=== PATIENT | female | born 1945 | race Caucasian/White ===

== ENCOUNTER 2019-11-27 16:38 | Inpatient (IN) | payer OTHER ==
[~2019-11-27] VITALS: Ht 160 cm; Wt 64.0 kg
[2019-11-27] MEDS ORDERED: METO25TA6 PO (16:57)
[2019-11-27] MEDS ORDERED: CHOL10002 PO (16:57)
[2019-11-27] MEDS ORDERED: HYDR12.55 PO (16:57)
[2019-11-27 17:51] LABS: *CLARITY,URINE CLEAR (CLEAR); *COLOR,URINE YELLOW (YELLOW); *KETONES,URINE TRACE (NEGATIVE); LEUKOCYTE ESTERASE ,URINE NEGATIVE (NEGATIVE); NITRITE, URINE NEGATIVE (NEGATIVE); UGLUCOSE NEGATIVE (NEGATIVE)
[2019-11-27 17:55] LABS: *BILIRUBIN,URIN 1+ (NEGATIVE); *BLOOD, URINE TRACE (NEGATIVE)
--- NOTE | 2019-11-27 19:10 | NUR ---
Patient sleeping on gurny in room 4b with no distress noted.
[2019-11-27 20:00] VITALS: BP 146/97
[2019-11-27] MEDS ORDERED: METO-357 PO (20:08)
[2019-11-27 20:18] LABS: BACTERIA,URINE FEW /HPF (NONE SEEN); CALCIUM OXALATE CRYSTALS,UR MODERATE /HPF (NONE SEEN); MUCUS,URINE MANY /LPF (0-FEW); SQUAMOUS EPITHELIAL CELL,UR MODERATE /HPF (NONE SEEN); WBC,URINE NONE SEEN /HPF (0-3)
--- NOTE | 2019-11-27 20:30 | NUR ---
Transfered to MHU via wheelchair with no distress noted.
[2019-11-27] MEDS ORDERED: ACETAMINOPHEN 325 MG TABLET PO PRN (21:00)
[2019-11-27] MEDS ORDERED: MAG HYDROX/AL HYDROX/SIMETH 30 ML LIQUID UDC PO PRN (21:00)
[2019-11-27] MEDS ORDERED: MAGNESIUM HYDROXIDE 30 ML LIQUID UDC PO PRN (21:00)
[2019-11-27] MEDS ORDERED: TEMAZEPAM 7.5 MG CAPSULE PO PRN (21:00)
--- NOTE | 2019-11-27 22:00 | NUR ---
ADMISSION NOTE: AT APPROX 2030 ADMITTED 74 YEARS OLD FEMALE FROM [facility] ON A 5150 HOLD FOR GD AND DTS. HER HOLD WILL BE UP ON 11/29/19 AT 2100. 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 UPON ADMISSION, PATIENT NOTED A/O X 3 AMBULATORY, SELF CARE. PATIENT REFLECTS WHAT IS WRITTEN ON THE HOLD. MOOD IS LOW, AFFECT IS BLUNTED. PATIENT ST THAT SHE HEARS VOICES TELLING HER TO "GO OUTSIDE". PATIENT DENIES SI/HI. SHE IS ABLE TO CFS. FACE TO FACE ASSESSMENT WAS DONE, PT WAS ADVISED OF HER HOLD AND ADVISEMENT WAS GIVEN WELL HER PATIENTS' RIGHT BOOKLET. DR CHIANG WAS NOTIFIED OF THE HOLD. SON WAS NOTIFIED OF HER ADMISSION TO MHU. PATIENT WAS EDUCATED ON UNIT RULES. WILL CONTINUE TO MONITOR.
[2019-11-28 07:30] VITALS: BP 127/81
[2019-11-28] MEDS: CHOLECALCIFEROL 1,000 UNIT TABLET PO SCH (09:47)
[2019-11-28] MEDS: METOPROLOL SUCCINATE XL 50 MG TAB.SR.24H PO SCH (09:49)
[2019-11-28] MEDS: HYDROCHLOROTHIAZIDE 12.5 MG CAPSULE PO SCH (09:54)
--- NOTE | 2019-11-28 10:45 | NUR ---
Family Contact: SW called the pts son, Paul ([phone]), and left a voicemail message stating that the SW would like a call back to discuss the pts initial treatment and discharge plan.
--- NOTE | 2019-11-28 10:53 | NUR ---
Initial Discharge Plan: Pt currently resides at her home alone located at [address] [place] [address], [facility] [address], [place] [address]; ([phone]). Per pt, she would like to be discharged home. SW will work with the pt and the MD regarding appropriate discharge planning. SW will form a safe and proper discharge plan.
[2019-11-28] MEDS: OLANZAPINE 2.5 MG TABLET PO SCH ×2 (12:45→17:28)
--- NOTE | 2019-11-28 12:47 | NUR ---
Family Contact: Pts son, Paul ([phone]), called the SW and stated that the pt has so many friends that live around her and that her home is a safe environment for the pt. He states that he does not live too far away and therefore he often visits and so she has support in that sense. SW explained that the pt will be released once she is considered stable and that for the current time the pts medications are going to be adjusted. SW stated that she will inform the pts son when she will be discharged.
--- NOTE | 2019-11-28 13:59 | NUR ---
TEXTED DR. MURCIA FOR MRI APPROVAL
--- NOTE | 2019-11-28 14:17 | NUR ---
MRI ON HOLD FOR NOW, DR. MURCIA WILL LET US KNOW.
--- NOTE | 2019-11-28 15:13 | NUR ---
Group Note: Pt was encouraged to attend group therapy on 11/28/19 at 1:30pm discussing the topic of discharge planning. Pt appeared to be in a euthymic mood and presented with a calm affect. Pt is hard of hearing and therefore required the participants of the group to speak at a higher volume. Pt maintained appropriate distance from the others in the activities room due to COVID 19. Pt was present and attentive in the room. Pt stated that she wanted to go back to her home because that is where she feels the most comfortable. Pt stated that she was admitted to the hospital because she was hearing voices that were disruptive to her and were telling her to do things that she did not want to do. Pt stated that she believes these voices began because she was starting to feel lonely being isolated from her friends and family due to COVID 19. Pt exhibited fair insight when she stated that once she goes back to her home after being discharged from the hospital she will have to maintain her medications. Pt understands that the medications are going to assist her with her symptoms of psychosis.
[2019-11-28 15:41] VITALS: BP 133/90
[2019-11-28 21:18] VITALS: BP 112/86
--- NOTE | 2019-11-29 05:53 | NUR ---
GPS: PT RECEIVED IN HALLWAY AND RESPOND VERBALLY AND STATED SHE IS REALLY NOT SUPPOSE TO BE HERE. PT WANT TO GO HOME WITH FAMILY. DENIED SI, BUT DEPRESS WITH CURRENT SITUATION. NO OTHER BEHAVIORS DURING NIGHT AND SLEPT WELL.
--- NOTE | 2019-11-29 06:55 | NUR ---
MRI APPROVED LAST NIGHT BY DR. MURCIA
[2019-11-29 07:30] VITALS: BP 123/87
--- NOTE | 2019-11-29 08:16 | NUR ---
received patient AOx1-2, patient lying on bed, patient verbalizes that shes aware where she is, patient also verbalizes that voices telling her to kill herself last night, patient having active auditory hallucination, patient kept safe, no distress at this time, will continue monitor
[2019-11-29] MEDS: CHOLECALCIFEROL 1,000 UNIT TABLET PO SCH (08:25)
[2019-11-29] MEDS: HYDROCHLOROTHIAZIDE 12.5 MG CAPSULE PO SCH (08:25)
[2019-11-29] MEDS: OLANZAPINE 2.5 MG TABLET PO SCH ×2 (08:25→20:47)
[2019-11-29] MEDS: METOPROLOL SUCCINATE XL 50 MG TAB.SR.24H PO SCH (08:26)
--- NOTE | 2019-11-29 10:00 | NUR ---
faxed court notification regarding [facility]
--- NOTE | 2019-11-29 10:23 | NUR ---
received a call from [facility], with mr. Spangler, that the MRI was approved by Dr. Payne, call the light industrial supervisor and spoke about the procedure, arrange transportation and ask patient to fill up the MRI checklist, patuent aware of the procedure, will continue monitor
--- NOTE | 2019-11-29 13:30 | NUR ---
patient went to have MRI , picked up by [facility] , accompanied by AMMUNITION SPECIALIST ,
--- NOTE | 2019-11-29 15:33 | NUR ---
Patient returned to unit after MRI , patient shows no dis comfort, VS WNL Addendum: 11/29/19 at 1535 by CLINT STRATTON RN BP 130/80 P78 R 18 T 97.9 O2 at 100%
[2019-11-29 16:00] VITALS: BP 113/87
--- NOTE | 2019-11-29 18:27 | NUR ---
Patient stayed calm and cooperative, patient been having phone calls and was able to respond accordingly, MRI result in MD aware
[2019-11-29 20:00] VITALS: BP 110/88
[2019-11-29] MEDS: SIMVASTATIN 10 MG TABLET PO SCH (20:47)
[2019-11-30 07:30] VITALS: BP 125/86
[2019-11-30] MEDS: CHOLECALCIFEROL 1,000 UNIT TABLET PO SCH (08:45)
[2019-11-30] MEDS: HYDROCHLOROTHIAZIDE 12.5 MG CAPSULE PO SCH (08:46)
[2019-11-30] MEDS: METOPROLOL SUCCINATE XL 50 MG TAB.SR.24H PO SCH (08:46)
[2019-11-30] MEDS: OLANZAPINE 2.5 MG TABLET PO SCH ×2 (08:46→20:17)
[2019-11-30 16:44] VITALS: BP 137/86
[2019-11-30] MEDS: SIMVASTATIN 10 MG TABLET PO SCH (20:17)
[2019-11-30 20:39] VITALS: BP 142/91
--- NOTE | 2019-12-01 06:44 | NUR ---
DURING THE NIGHT.PT CAME OUT OF HER ROOM THEN ASKED STAFFS IF THEY HEARD THE RADIO VOICES ,AND SHE MENTIONED ABOUT HEARING VOICES THRU WIFI.FREQ REALITY REORIENTATION NEEDED.
[2019-12-01 07:30] VITALS: BP 147/92
[2019-12-01] MEDS: HYDROCHLOROTHIAZIDE 12.5 MG CAPSULE PO SCH (08:36)
[2019-12-01] MEDS: CHOLECALCIFEROL 1,000 UNIT TABLET PO SCH (08:36)
[2019-12-01] MEDS: OLANZAPINE 2.5 MG TABLET PO SCH ×2 (08:36→20:19)
[2019-12-01] MEDS: METOPROLOL SUCCINATE XL 50 MG TAB.SR.24H PO SCH (08:40)
--- NOTE | 2019-12-01 09:43 | NUR ---
UR Note: SW received a call from Leanne ([phone]), N Temperature Regulator, and conducted a clinical. Pt was authorized until Saturday 12/02.
[2019-12-01 16:00] VITALS: BP 146/91
[2019-12-01 20:00] VITALS: BP 131/88
[2019-12-01] MEDS: SIMVASTATIN 10 MG TABLET PO SCH (20:20)
[2019-12-01] MEDS: LORAZEPAM 0.5 MG TABLET PO PRN (20:53)
[2019-12-02 07:30] VITALS: BP_SYST 112; BP_SYST 131; BP_DIAS 80; BP_DIAS 82
[2019-12-02 07:53] LABS: BASOPHILS % (AUTO) 0.7 % (0.0-2.0); EOSINOPHILS # (AUTO) 0.1 K/uL (0.0-0.7); EOSINOPHILS % (AUTO) 2.1 % (0.0-7.0); HEMOGLOBIN 12.5 g/dL (10.9-14.3); LYMPHOCYTES # (AUTO) 1.2 K/uL (20.0-40.0); LYMPHOCYTES % (AUTO) 20.9 % (20.5-51.5); MEAN CORPUSCULAR HEMOGLOBIN 32.1 uug (24.7-32.8); MEAN CORPUSCULAR HGB CONC 34 g/dL (32.3-35.6); MEAN CORPUSCULAR VOLUME 94.8 fL (75.5-95.3); MONOCYTES # (AUTO) 0.6 K/uL (2.0-10.0); NEUTROPHILS # (AUTO) 3.7 K/uL (1.8-8.9); NEUTROPHILS % (AUTO) 65.3 % (38.5-71.5); PLATELET COUNT (AUTO) 205 K/uL (179-408); WHITE BLOOD COUNT (AUTO) 5.7 K/uL (3.8-11.8)
[2019-12-02 07:55] LABS: BILIRUBIN,TOTAL 0.6 mg/dL (0.2-1.0); MAGNESIUM 2.1 mg/dL (1.8-2.4); PHOSPHOROUS 2.9 mg/dL (2.5-4.9); POTASSIUM 4.1 mmol/L (3.5-5.1); TOTAL PROTEIN, SERUM 6.9 g/dL (6.4-8.2)
[2019-12-02 08:06] LABS: THYROID STIMULATING HORMONE 1.182 mIU/mL (0.358-3.740)
[2019-12-02] MEDS: OLANZAPINE 2.5 MG TABLET PO SCH ×2 (08:18→21:25)
[2019-12-02] MEDS: CHOLECALCIFEROL 1,000 UNIT TABLET PO SCH (08:18)
[2019-12-02] MEDS: HYDROCHLOROTHIAZIDE 12.5 MG CAPSULE PO SCH (08:18)
[2019-12-02] MEDS: METOPROLOL SUCCINATE XL 50 MG TAB.SR.24H PO SCH (08:19)
--- NOTE | 2019-12-02 10:09 | NUR ---
Probable Cause (PC) Hearing: Pts hold was upheld for grave disability.
[2019-12-02 15:19] VITALS: BP 112/80
--- NOTE | 2019-12-02 15:33 | NUR ---
UR Note: KAREL called Leanne ([phone]), [employer] Automotive Assembler, and left a voicemail inquiring about a partial program for the pt.
--- NOTE | 2019-12-02 15:33 | NUR ---
Partial Referral: KAREL faxed a referral to [facility] with attention to Zora to the fax number: [phone].
--- NOTE | 2019-12-02 15:38 | NUR ---
Family Contact: KAREL called the pts son, Paul ([phone]), and informed him about the pts progress and the intent to admit the pt to a partial program once she is discharged. Pts son stated that he spoke to the pt the following day and feels that she has not shown improvement and stated that he feels concerned. He stated that when he talked to her on the phone she was petrified and hysterical about her voices in her head and stated that it took him 30 minutes to calm her down. SW stated that she will ask the insurance company for more time during the review and go from there in terms of discharge planning.
[2019-12-02 20:00] VITALS: BP 130/80
--- NOTE | 2019-12-02 20:20 | NUR ---
Patient received into care laying in bed, talking on telephone with brother. Patient is alert/oriented x3 and has no complaints of pain or discomfort at this time. All safety, fall, and GPS/MHU precautions are in place. Will continue to monitor and assess.
[2019-12-02] MEDS: SIMVASTATIN 10 MG TABLET PO SCH (21:25)
--- NOTE | 2019-12-03 06:45 | NUR ---
Patient slept 6 hours and had no complaints of pain or discomfort this shift. Pt was compliant with all medical care, medication regime, and diet. Pt is now awake and alert and watching television in the activities room. All safety, fall, GPS/MHU, and fall precaution measures remain in place.
[2019-12-03 07:30] VITALS: BP 142/89
[2019-12-03] MEDS: CHOLECALCIFEROL 1,000 UNIT TABLET PO SCH (09:17)
[2019-12-03] MEDS: OLANZAPINE 2.5 MG TABLET PO SCH ×2 (09:17→21:02)
[2019-12-03] MEDS: METOPROLOL SUCCINATE XL 50 MG TAB.SR.24H PO SCH (09:18)
[2019-12-03] MEDS: HYDROCHLOROTHIAZIDE 12.5 MG CAPSULE PO SCH (09:20)
--- NOTE | 2019-12-03 10:10 | NUR ---
UR Note: KAREL received a call from Leanne ([phone]), [employer] Internal Review And Audit Compliance, and conducted a clinical. She stated that she understands the SW is attempting to refer the pt to a SNF and so she will speak to the MD on the case about authorizing throughout the weekend. She will call the SW back with the information.
--- NOTE | 2019-12-03 10:33 | NUR ---
Partial Program Referral: SW called [facility] Program called Alek Bell and spoke Maranda ([phone]) and she stated that their program is out of network.
--- NOTE | 2019-12-03 12:09 | NUR ---
SNF Referral: SW faxed a referral to the following two facilities: [facility] with attn to Luis to the fax number: [phone] [facility] with attn to Stacey to the fax number: [phone]
--- NOTE | 2019-12-03 12:10 | NUR ---
SNF Contact: Stacey , admissions assistant from [facility], contacted the SW and stated that the pt was denied due to her behaviors.
--- NOTE | 2019-12-03 12:21 | NUR ---
SNF Contact: KAREL received a call from Osman ([phone]) from [facility] requesting a COVID test be faxed to them. KAREL faxed a COVID test to the fax number: [phone].
[2019-12-03] MEDS: MEMANTINE HCL 5 MG TABLET PO SCH ×2 (12:33→21:01)
--- NOTE | 2019-12-03 13:25 | NUR ---
UR Note: SW received a call from Leanne ([phone]), N Director Mobile, who stated that the pt is authorized until 12/05/19 because the MD on the case would like more information on the pts diagnosis and whether or not the pts family knew about her medications.
--- NOTE | 2019-12-03 14:12 | NUR ---
SNF Contact: SW received a call from Osman ([phone]) from [facility] stating that the pt was accepted to their facility.
[2019-12-03 16:00] VITALS: BP 122/76
[2019-12-03 20:28] VITALS: BP 128/80
--- NOTE | 2019-12-03 20:44 | NUR ---
Received patient while sitting in her bed. AAO x3. Compliant with medication. No SI. No behavioral issues. Calm and cooperative. Continue to monitor.
[2019-12-03] MEDS: SIMVASTATIN 10 MG TABLET PO SCH (21:02)
[2019-12-04] MEDS: LORAZEPAM 0.5 MG TABLET PO PRN (00:43)
--- NOTE | 2019-12-04 00:55 | NUR ---
Patient was agitated and crying, stated, "Don't let my baby dies". Reinforce her to reality. Ativan 0.5 mg tab administered and effective. Continue to monitor.
[2019-12-04 07:30] VITALS: BP 128/75
[2019-12-04] MEDS: MEMANTINE HCL 5 MG TABLET PO SCH ×2 (08:50→20:19)
[2019-12-04] MEDS: METOPROLOL SUCCINATE XL 50 MG TAB.SR.24H PO SCH (08:51)
[2019-12-04] MEDS: CHOLECALCIFEROL 1,000 UNIT TABLET PO SCH (08:51)
[2019-12-04] MEDS: HYDROCHLOROTHIAZIDE 12.5 MG CAPSULE PO SCH (08:51)
[2019-12-04] MEDS: OLANZAPINE 2.5 MG TABLET PO SCH ×2 (08:52→20:19)
[2019-12-04] MEDS: risperiDONE 0.5 MG TABLET PO SCH ×2 (15:22→17:25)
[2019-12-04 15:37] VITALS: BP 128/83
--- NOTE | 2019-12-04 16:15 | NUR ---
Family Contact: SW called the pts son, Paul ([phone]), and left a voicemail informing him that the pts medications are going to be changing today due to the pt showing increased confusion and the SW expressed that she will ask the insurance company for more time. KAREL then stated that a SNF has already accepted the pt and now the insurance company needs to authorize it.
--- NOTE | 2019-12-04 16:46 | NUR ---
Received patient this am Awake, sitting on the bed, but confused and with hallucinations. Assist given to bathroom and reorientation to environment provided. Patient was compliant with medication but seems to still be hearing voices and paranoid. Multiple phone calls for the patient today and patient did participate in some recreational therapy. Continuing to provide a reality based conversations, redirect and reorient when confused. Monitoring for safety. No acute behavioral issues noted at this time.
--- NOTE | 2019-12-04 20:36 | NUR ---
Received patient in her bed. AAO x3. Compliant with medication. No SI. No behavioral issues. Calm and cooperative. Continue to monitor.
[2019-12-04] MEDS: SIMVASTATIN 10 MG TABLET PO SCH (20:38)
[2019-12-04 20:57] VITALS: BP 123/89
[2019-12-05 07:30] VITALS: BP 137/92
[2019-12-05] MEDS: OLANZAPINE 2.5 MG TABLET PO SCH (08:47)
[2019-12-05] MEDS: CHOLECALCIFEROL 1,000 UNIT TABLET PO SCH (08:47)
[2019-12-05] MEDS: HYDROCHLOROTHIAZIDE 12.5 MG CAPSULE PO SCH (08:48)
[2019-12-05] MEDS: METOPROLOL SUCCINATE XL 50 MG TAB.SR.24H PO SCH (08:48)
[2019-12-05] MEDS: risperiDONE 0.5 MG TABLET PO SCH ×3 (08:48→16:28)
--- NOTE | 2019-12-05 08:54 | NUR ---
Received patient awake in bed. Patient is calm and quiet. Patient consumed breakfast fairly. Patient suspicious noted, Patient refuse to take one medication, memantine for behavioral problem. Patient verbalize" Im taking more pills everyday, " I need to talk to the doctor. Patient was reorient and explain each medication she is taking, still refusing. will come back and continue monitor
[2019-12-05] MEDS: MEMANTINE HCL 5 MG TABLET PO SCH ×3 (09:00→20:44)
--- NOTE | 2019-12-05 09:26 | NUR ---
Patient refuse again for memantine despite of education and encouragement. will continue monitor
--- NOTE | 2019-12-05 09:27 | NUR ---
UR Note: SW received a call from Kyara ([phone]), [employer] Shuttlecock Assembler, and conducted a live review on the case. KAREL informed her about the medication changes and the recent progress with having the pt accepted to a SNF. Pts vocational case manager authorized the pt for inpatient stay from 12/05-12/07 with a review on 12/08/19.
--- NOTE | 2019-12-05 09:30 | NUR ---
Family Contact: KAREL called the pts son, Paul ([phone]), and informed him that the pt was accepted to a SNF and that the SW is working with the insurance company to receive authorization for the SNF. KAREL then went into the pts medication changes and then went over her behaviors as well. KAREL stated that she will keep him updated regarding the pts case.
--- NOTE | 2019-12-05 11:34 | NUR ---
Family Contact: KAREL called the pts son, Paul ([phone]), and addressed his questions regarding the insurance company authorization at depth. KAREL stated that she will keep him updated in terms of whether or not the facility will be authorized.
--- NOTE | 2019-12-05 13:28 | NUR ---
Patient seen and examined by MD Rosario. After examination from MD, Patient agree to take all her medication. Patient continue on fall risk precaution. will continue monitor
--- NOTE | 2019-12-05 15:40 | NUR ---
UR Note: SW called [facility] Authroization line ([phone]) and spoke to Ashley (Reference #[id number]) and informed her that the pt needs SNF authorization. apartment leasing manager stated that the pt would need to be authorized through [facility] ([phone]) as they are responsible for the retirement aspect of the medical center.
--- NOTE | 2019-12-05 15:51 | NUR ---
UR Note: SW called [facility] ([phone]) and left a voicemail stating that the SW would like a call back regarding SNF authorization for a pt.
[2019-12-05 15:58] VITALS: BP 127/82
--- NOTE | 2019-12-05 17:30 | NUR ---
Patient went to the nurse station, verbalize to the charge nurse" why you telling the other patient that Im incompetent" . Patient was redirected right away with good effect. will continue monitor
[2019-12-05 20:00] VITALS: BP 130/78
[2019-12-05] MEDS: SIMVASTATIN 10 MG TABLET PO SCH (20:44)
[2019-12-05] MEDS: risperiDONE 1 MG TABLET PO SCH (20:44)
[2019-12-06 07:30] VITALS: BP 121/77
--- NOTE | 2019-12-06 07:34 | NUR ---
PATIENT SLEPT MOST OF THE NIGHT NO BEHAVIORAL PROBLEM NOTED, COOPERATIVE WITH MEDS, CONT TO MONITOR.
[2019-12-06] MEDS: OLANZAPINE 2.5 MG TABLET PO SCH (08:06)
[2019-12-06] MEDS: risperiDONE 0.5 MG TABLET PO SCH ×3 (08:06→16:06)
[2019-12-06] MEDS: CHOLECALCIFEROL 1,000 UNIT TABLET PO SCH (08:06)
[2019-12-06] MEDS: METOPROLOL SUCCINATE XL 50 MG TAB.SR.24H PO SCH (08:07)
[2019-12-06] MEDS: MEMANTINE HCL 5 MG TABLET PO SCH ×2 (08:07→20:26)
[2019-12-06] MEDS: HYDROCHLOROTHIAZIDE 12.5 MG CAPSULE PO SCH (08:08)
--- NOTE | 2019-12-06 09:00 | NUR ---
GPS: RECEIVED PATIENT ASLEEP IN HER BED, WOKE UP AND TOOK HER MEDICATION NO DISTRESS AT THIS TIME, PATIENT WAS ABLE TO DO ADLS, MONITORING FOR FALL PRECAUTION, PATIENT DENIES ANY HALLUCINATION
[2019-12-06 16:00] VITALS: BP 109/79
--- NOTE | 2019-12-06 18:21 | NUR ---
seen walking in the hallway with steady gait, monitored for fallrisk, no distress, denies any auditory and command hallucination
[2019-12-06] MEDS: risperiDONE 1 MG TABLET PO SCH (20:26)
[2019-12-06] MEDS: SIMVASTATIN 10 MG TABLET PO SCH (21:11)
[2019-12-06 21:14] VITALS: BP 122/83
--- NOTE | 2019-12-07 02:57 | NUR ---
RECEIVED PATIENT AWAKE IN ACTIVITY ROOM INTERACTING WITH PEERS. SHE IS MEDICATION COMPLIANT.DENIES SI/HI. WILL CONTINUE WITH MONITORING.
--- NOTE | 2019-12-07 06:34 | NUR ---
SLEPT FOR ABOUT 6HOURS. SHE IS UP AND HAS TAKEN A SHOWER.
[2019-12-07 07:30] VITALS: BP 132/89
[2019-12-07] MEDS: OLANZAPINE 2.5 MG TABLET PO SCH (08:09)
[2019-12-07] MEDS: risperiDONE 0.5 MG TABLET PO SCH ×3 (08:10→16:04)
[2019-12-07] MEDS: MEMANTINE HCL 5 MG TABLET PO SCH ×2 (08:10→20:53)
[2019-12-07] MEDS: METOPROLOL SUCCINATE XL 50 MG TAB.SR.24H PO SCH (08:10)
[2019-12-07] MEDS: HYDROCHLOROTHIAZIDE 12.5 MG CAPSULE PO SCH (08:10)
[2019-12-07] MEDS: CHOLECALCIFEROL 1,000 UNIT TABLET PO SCH (08:10)
--- NOTE | 2019-12-07 08:20 | NUR ---
GPS: received patient AOX3, patient in good mood, seen walking steadily in the hallway, denies pain ,ask the patient regarding the Voices she hearing patient verbalizes that when she prays the Voices go away and she even told her roommate about it, patient was aware about the auditory hallucination and patient compliant with her medication, denies pain and denies SI and HI at this time
[2019-12-07 15:27] VITALS: BP 138/80
--- NOTE | 2019-12-07 18:27 | NUR ---
patient calm cooperative , patient verbalizes that her voices that she hear is much less, no distress at this time
[2019-12-07 20:20] VITALS: BP 127/75
[2019-12-07] MEDS: risperiDONE 1 MG TABLET PO SCH (20:52)
[2019-12-07] MEDS: SIMVASTATIN 10 MG TABLET PO SCH (20:53)
--- NOTE | 2019-12-08 00:20 | NUR ---
RECEIVED PATIENT IN ACTIVITY ROOM WITH PEERS. DENIES AH/SI. COMPLIANT WITH MEDICATION AND CARE. WILL CONTINUE TO MONITOR.
--- NOTE | 2019-12-08 06:32 | NUR ---
SLEPT WELL FOR APPROX.9:00 HOURS.
[2019-12-08 07:30] VITALS: BP 134/87
[2019-12-08] MEDS: CHOLECALCIFEROL 1,000 UNIT TABLET PO SCH (08:44)
[2019-12-08] MEDS: MEMANTINE HCL 5 MG TABLET PO SCH ×2 (08:44→20:15)
[2019-12-08] MEDS: HYDROCHLOROTHIAZIDE 12.5 MG CAPSULE PO SCH (08:44)
[2019-12-08] MEDS: risperiDONE 0.5 MG TABLET PO SCH ×3 (08:44→16:07)
[2019-12-08] MEDS: OLANZAPINE 2.5 MG TABLET PO SCH (08:44)
[2019-12-08] MEDS: METOPROLOL SUCCINATE XL 50 MG TAB.SR.24H PO SCH (08:45)
--- NOTE | 2019-12-08 11:32 | NUR ---
Family Contact: KAREL called the pts son, Paul ([phone]), and informed him that the pt is going to be discharged the following day back to her home with a partial program and with a title officer for a few hours a day. He stated that he is going to speak to the pts friend who volunteered to stay with her. He stated that once he receives confirmation he will call the SW back. He also stated that he will clam picker the pt around 1pm.
--- NOTE | 2019-12-08 11:37 | NUR ---
UR Note: KAREL received a call from Leanne ([phone]), N Assessment Technician, and informed her that the pt is going to be discharged the following day and that the SW is referring the pt to a Partial Program.
--- NOTE | 2019-12-08 11:42 | NUR ---
Partial Program Referral: KAREL ziegler a referral to [facility] Program with attn to Admissions to the fax number: [phone]. Addendum: 12/08/19 at 1209 by FAISAL VINSON Fax number: [phone].
[2019-12-08 15:28] VITALS: BP 123/80
[2019-12-08] MEDS ORDERED: PNEUMOCOCCAL 23-VAL P-SAC VAC 0.5 ML VIAL IM ONE (16:00)
--- NOTE | 2019-12-08 16:03 | NUR ---
Family Contact: SW called the pts son, Paul ([phone]), to return his voicemail and informed him that the hospital will not do a COVID test for when the pt is being discharged home and the SW stated that he can take the pt to any testing center.
[2019-12-08] MEDS: BENZTROPINE MESYLATE 0.5 MG TABLET PO SCH (16:07)
--- NOTE | 2019-12-08 16:24 | NUR ---
UR Note: SW received a call from Leanne ([phone]), N Radiophone Operator, and left a voicemail stating that the pt will need a psychiatrist appointment.
[2019-12-08] MEDS: risperiDONE 1 MG TABLET PO SCH (20:14)
[2019-12-08] MEDS: SIMVASTATIN 10 MG TABLET PO SCH (20:14)
[2019-12-08 20:33] VITALS: BP 124/83
--- NOTE | 2019-12-09 06:39 | NUR ---
Pt slept 8 hrs. No significant issues last night. Had shower in am.
[2019-12-09 07:30] VITALS: BP 129/79
[2019-12-09] MEDS: CHOLECALCIFEROL 1,000 UNIT TABLET PO SCH (08:31)
[2019-12-09 08:32] VITALS: BP 129/74
[2019-12-09] MEDS: BENZTROPINE MESYLATE 0.5 MG TABLET PO SCH (08:32)
[2019-12-09] MEDS: METOPROLOL SUCCINATE XL 50 MG TAB.SR.24H PO SCH (08:32)
[2019-12-09] MEDS: risperiDONE 0.5 MG TABLET PO SCH ×2 (08:32→12:18)
[2019-12-09] MEDS: MEMANTINE HCL 5 MG TABLET PO SCH (08:32)
[2019-12-09] MEDS: HYDROCHLOROTHIAZIDE 12.5 MG CAPSULE PO SCH (08:32)
--- NOTE | 2019-12-09 11:09 | NUR ---
UR Note: SW called Kyara ([phone]), MHN Beer Cooler, and informed her that the SW was attempting to get a psychiatrist appointment for the pt through [place] but the SW was not sure if the pts complex case manager is back from her vacation yet.
--- NOTE | 2019-12-09 11:25 | NUR ---
Discharge Note: Pt was discharged back to her home located at [address] [place] [address], [address], [place] [address]; ([phone]). Pts son, Paul ([phone]), picked up the pt at 1PM. Upon discharge, the pt appeared to be in a euthymic mood and presented with a calm affect. Pt appeared to be alert and oriented x4 (time, place, self and situation). Pt appeared to be well groomed and appropriately dressed. Pt appears to be ambulatory with a steady gait. Pt denied both suicidal and homicidal ideation as well as auditory and visual hallucinations. Pt will be under the care of her psychiatrist, Dr. Duarte, located [address] [facility], [address], [place], [place]; ([phone]) at 12/29/19 @4:40pm and will follow up with her truck mechanic apprentice, Dr. Marissa Sarmiento, located at [address] [facility] [facility] [address], [place] [id number]; ; fax: . Pt has an appointment on 12/10/19 at 1pm. Addendum: 12/09/19 at 1151 by FAISAL VINSON Pt was referred to [facility].
--- NOTE | 2019-12-09 11:35 | NUR ---
Home Health Referral: KAREL faxed a home health referral to [facility] to fax number: [phone].
--- NOTE | 2019-12-09 13:00 | NUR ---
GPS: Nursing Notes: Discharge Notes: Patient is awake and responding to her name, cooperative with nursing care, compliant with her medications, following staff directions, denies any SI/HI, denies any AH/VH, denies any pain or discomfort, denies any SOB. discharge home with her daughter Jennifer at [address], [place] [address] , took all her belongings with her, instructions and prescription given to daughter - Jennifer. transported home by daughter Jennifer via private vehicle. Pt will be under the care of her psychiatrist, Dr. Duarte, located [address] [facility], [address], [place], [place]; ([phone]) at 12/29/19 @4:40pm and will follow up with her barrel raiser, Dr. Marissa Sarmiento, located at [address], [place] [address]; ; fax: . Pt has an appointment on 12/10/19 at 1pm.
--- NOTE | 2019-12-09 14:12 | NUR ---
Social Work Firearms Report ([employer]): Senior Mechanical Engineer completed and submitted a [employer] firearms report for 5150 grave disability certification. A copy of report has been placed in patient chart.
--- NOTE | 2019-12-10 10:38 | NUR ---
UR Note: KAREL received a call from Leanne ([phone]), MARLA Commissioned Fire Officer, and KAREL conducted the discharge clinical live. Pts authorization number for the inpatient stay is #[id number] for 11/26-12/07.
== END 2019-12-09 13:05 | disposition home or self-care (01) | DRG 885 ==
LOC: ER 16:41 → GPS 20:21
PROVIDERS: ADMIT Psychiatry & Neurology Psychosomatic Medicine; ATTEND Nurse Practitioner Acute Care
DX: F29 Unspecified psychosis not due to a substance or known physiological condition (principal); F03.91 Unspecified dementia, unspecified severity, with behavioral disturbance; F23 Brief psychotic disorder; D68.69 Other thrombophilia; E78.5 Hyperlipidemia, unspecified; F17.210 Nicotine dependence, cigarettes, uncomplicated; I10 Essential (primary) hypertension; M19.90 Unspecified osteoarthritis, unspecified site; Z73.6 Limitation of activities due to disability; F25.9 Schizoaffective disorder, unspecified; R73.9 Hyperglycemia, unspecified
CPT/HCPCS: 36415; 70551; 71045; 83735; 84100; 84443; 85025; 87086; 90732; 93005; 95819; A4663